=== PATIENT | female | born 1995 | race Two or more races ===

== ENCOUNTER 2019-01-06 05:55 | Emergency (ER) | payer OTHER ==
[~2019-01-06] VITALS: Ht 154.9 cm; Wt 76.7 kg
[2019-01-06] MEDS ORDERED: DUI500 PO (08:00)
[2019-01-06] MEDS ORDERED: MUPIROCIN22 GM TOP (08:00)
[2019-01-06] MEDS ORDERED: EPIPEN0.3 MG/0.1 IJ (08:02)
== END 2019-01-06 08:19 | disposition home or self-care (01) ==
LOC: ER 05:55
DX: L01.00 Impetigo, unspecified (principal)

== ENCOUNTER 2020-06-08 16:53 | Emergency (ER) | payer OTHER ==
[~2020-06-08] VITALS: Ht 154.9 cm; Wt 63.5 kg
[~2020-06-08 16:53] MED LIST: DUI500 PO; EPIPEN0.3 MG/0.1 IJ; MUPIROCIN22 GM TOP
== END 2020-06-08 19:35 | disposition home or self-care (01) ==
LOC: ER 16:53
DX: H61.22 Impacted cerumen, left ear (principal); H92.02 Otalgia, left ear